=== PATIENT | female | born 1985 ===

== ENCOUNTER 2018-01-04 22:55 | Emergency (ER) | payer SELFPAY ==
[2018-01-04 22:56] VITALS: BMI 28.6
[2018-01-04 23:12] VITALS: PULSE 108; RESP 18; TEMP 98.4; O2SAT 97
[2018-01-04] MEDS ORDERED: DiphenhydrAMINE 50 mg/ml Inj IVP STA (23:22)
[2018-01-04] MEDS ORDERED: Dexamethasone 4 mg/1 ml IVP STA (23:22)
[2018-01-04] MEDS ORDERED: DiphenhydrAMINE 50 mg/ml Inj ONE (23:31)
[2018-01-04] MEDS ORDERED: Dexamethasone 4 mg/1 ml ONE (23:31)
--- NOTE | 2018-01-05 00:40 | C.PDOC ---
History Of Present Illness 32 year old female presents to the emergency department with complaints of pruritic rash to bilateral lower leg and upper arms. Pt denies shortness of breath, known allergens, or contact with poison maria elena and oak, wheezing, oral lesions, fever. She reports taking Benadryl at home with no improvement in symptoms. Time Seen by Provider: 01/04/18 23:16 Chief Complaint (Nursing): Abnormal Skin Integrity History Per: Patient History/Exam Limitations: no limitations Onset/Duration Of Symptoms: Days (4) Current Symptoms Are (Timing): Still Present Location Of Injury: Right: Leg, Shoulder, Left: Leg, Shoulder Quality Of Symptoms: Itching Past Medical History Reviewed: Historical Data, Nursing Documentation, Vital Signs Vital Signs: Last Vital Signs Temp 98.4 F 01/04/18 23:08 Pulse 108 H 01/04/18 23:08 Resp 18 01/04/18 23:08 BP Pulse Ox 97 01/04/18 23:08 - Medical History PMH: Hypothyroidism Denies: Chronic Kidney Disease Surgical History: No Surg Hx - [facility] Procedures EXC LES SOFT TISSUE NEC (10/13/14) Family History: States: No Known Family Hx - Social History Hx Tobacco Use: No Hx Alcohol Use: No Hx Substance Use: No - Immunization History Hx Tetanus Toxoid Vaccination: No Hx Influenza Vaccination: No Hx Pneumococcal Vaccination: No Review Of Systems Cardiovascular: Negative for: Palpitations Respiratory: Negative for: Shortness of Breath Skin: Positive for: Rash Physical Exam - Physical Exam Appears: Non-toxic, No Acute Distress Skin: Warm, Dry, Rash (patchy, erythematous maculopapular rash to the bilateral lower legs, greater in the right leg. Scaly areas noted to the upper arms, with well-demarcated circular rash pattern. Torso not involved. ) Head: Atraumatic, Normacephalic Eye(s): bilateral: Normal Inspection, PERRL, EOMI Tongue: Normal Appearing Lips: Normal Appearing Throat: Normal, No Erythema, No Exudate Neck: Normal, Supple Chest: Symmetrical, No Tenderness Cardiovascular: Rhythm Regular, No Murmur Respiratory: Normal Breath Sounds, No Rales, No Rhonchi, No Wheezing Neurological/Psych: Oriented x3, Normal Speech, Normal Cognition Gait: Steady ED Course And Treatment O2 Sat by Pulse Oximetry: 97 (RA) Pulse Ox Interpretation: Normal Progress Note: Plan: Benadryl 50mg IVP. Decadron 8mg IVP. Patient reports feeling better after treatment, remains in no respiratory distress. Pt will follow up with PMD/ dermatology Reevaluation Time: 04:04 Reassessment Condition: Improved Disposition - Disposition Disposition: HOME/ ROUTINE Disposition Time: 00:32 Condition: STABLE Additional Instructions: Please take medications as directed Use cream as directed Follow up with PMD for derm Return to ER if worse Prescriptions: Cetirizine HCl [Zyrtec] 10 mg PO DAILY #20 capsule Famotidine [Pepcid] 20 mg PO DAILY #7 tab predniSONE [Prednisone] 40 mg PO DAILY #10 tab Instructions: Skin Rash (DC) Forms: [employer] (Romansh) - Clinical Impression Clinical Impression: Skin rash - 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 - Scribe Statement The provider has reviewed the documentation as recorded by the Scribe (Morgan Somers) All medical record entries made by the Scribe were at my direction and personally dictated by me. I have reviewed the chart and agree that the record accurately reflects my personal performance of the history, physical exam, medical decision making, and the department course for this patient. I have also personally directed, reviewed, and agree with the discharge instructions and disposition.
== END 2018-01-05 00:45 | disposition home or self-care (01) ==
LOC: C.ER 22:55
DX: R21 Rash and other nonspecific skin eruption (principal)
CPT/HCPCS: 96374; 96375; 99283; J1100; J1200

== ENCOUNTER 2018-04-04 10:28 | Outpatient (CLI) | payer OTHER | END 2018-04-04 10:29 | disposition home or self-care (01) | LOC: C.LAB 10:28 | DX: E03.9 Hypothyroidism, unspecified (principal); E22.9 Hyperfunction of pituitary gland, unspecified; E28.1 Androgen excess; E11.9 Type 2 diabetes mellitus without complications ==

== ENCOUNTER 2018-06-24 10:28 | Outpatient (CLI) | payer OTHER | END 2018-06-24 10:29 | disposition home or self-care (01) | LOC: C.LAB 10:28 | DX: E23.6 Other disorders of pituitary gland (principal); E28.1 Androgen excess; E78.2 Mixed hyperlipidemia ==